=== PATIENT | male | born 1945 | race Caucasian/White ===

== ENCOUNTER 2018-10-01 10:09 | Day surgery (SDC) | payer MEDICARE ==
[2018-10-01] MEDS ORDERED: LIDOCAINE 2% MDV (20MG/ML) 20ML VIAL IV ONE (10:10)
[2018-10-01] MEDS ORDERED: PROPOFOL 10 MG/ML VIAL IV ONE (10:10)
--- NOTE | 2018-10-02 10:30 | Operative Note ---
DATE OF SURGERY: October 01, 2018 OPERATION: 1. ESOPHAGOGASTRODUODENOSCOPY with biopsy. 2. COLONOSCOPY. PREOPERATIVE DIAGNOSES: 1. Atypical dysphagia. 2. Colon cancer surveillance for personal history of polyps and a family history of polyps. POSTOPERATIVE DIAGNOSES: 1. Multiple gastric polyps. 2. Sigmoid diverticulosis. 3. Internal hemorrhoids. PROCEDURE: After informed consent was obtained from the patient, he was placed in the left lateral decubitus position in the endoscopy suite, sedated and monitored by the department of anesthesia. Once sedated, a well-lubricated [id number] gastroscope was placed in the posterior oropharynx and under direct visualization passed to the proximal esophagus. The endoscope was advanced through the proximal, mid, and distal esophagus. The esophagus and Ge junction were free of ulcers, erosions, inflammatory changes, strictures, or varices. The GE junction was unremarkable. The gastric body demonstrated normal distensibility, normal rugal folds. There were multiple gastric polyps in the proximal body/fundus. The remainder of the body, antrum, pylorus, duodenal bulb and sweep were unremarkable. J-turn views of the proximal stomach again revealed multiple polyps of small to medium size. They appeared semi-pedunculated. Multiple polyps were biopsied for sampling purposes. The endoscope was then straightened and retracted through the course of the proximal stomach and esophagus with no new findings or abnormalities identified. Digital rectal exam was unremarkable. A well-lubricated [id number] colonoscope was inserted into the rectum and advanced to the cecum. Preparation quality was good to excellent. The cecum, cecal bulb, ascending colon, transverse colon, and descending colon were unremarkable. The sigmoid colon demonstrated mild diverticular change but no other abnormalities. The rectum was unremarkable in forward views but J-turn views did reveal some mildly to moderately enlarged internal hemorrhoids. The endoscope was straightened, the rectal ampulla deflated, and the endoscope was removed. RECOMMENDATIONS: I would suggest the patient resume his medications and follow a high-fiber diet. I would recommend a repeat colonoscopy in 5 years based on his personal and family history. As for his dysphagia complaints, they seem to be rather mild and atypical. I would monitor the situation. Should his symptoms recur or worsen, I would suggest a video swallowing examination. As always, thank you for allowing me to participate in the healthcare of your patients. CC: MD SARINA Lomeli
== END 2018-10-01 12:04 | disposition home or self-care (01) ==
LOC: HOP 10:09
PROVIDERS: ATTEND Internal Medicine Gastroenterology
DX: Z12.11 Encounter for screening for malignant neoplasm of colon (principal); Z86.010 Personal history of colon polyps; Z83.71 Family history of colonic polyps; K57.30 Diverticulosis of large intestine without perforation or abscess without bleeding; K64.8 Other hemorrhoids; R13.19 Other dysphagia; K31.7 Polyp of stomach and duodenum; I10 Essential (primary) hypertension; I48.91 Unspecified atrial fibrillation; E78.00 Pure hypercholesterolemia, unspecified

== ENCOUNTER 2018-12-13 14:24 | Emergency (ER) | payer MEDICARE ==
[2018-12-13 15:07] LABS: BASO % 0.4 % (0-6); EOS % 2.7 % (0-6); GRAN % 54.7 % (47-80); HEMATOCRIT 41.2 % (42.0-52.0); HEMOGLOBIN 14.4 gm/dl (14.0-18.0); LYMPH % 30.7 % (16-45); MEAN CELL VOLUME 96.5 fl (81-97); MEAN CORPUSCULAR HEMOGLOBIN 33.7 pg (27-33); MONO % 11.5 % (0-9); PLATELET COUNT 226 K/uL (130-400); RED BLOOD COUNT 4.27 M/uL (4.40-5.70); RED CELL DISTRIBUTION WIDTH 13.2 % (11.5-14.5); WHITE BLOOD COUNT W/O DIFF 4.8 K/uL (4.2-12.2)
[2018-12-13 15:16] LABS: BLOOD UREA NITROGEN 20 mg/dL (8-23); CREATININE 1.1 mg/dL (0.7-1.2); EST GLOMERULAR FILTRATION RATE > 60 mL/min
[2018-12-13 15:19] LABS: GLUCOSE,RANDOM 140 mg/dL (74-109)
[2018-12-13 15:20] LABS: INR 1.2; PARTIAL THROMBOPLASTIN TIME 29.1 SECONDS (24.5-39.1); PROTHROMBIN TIME (PATIENT) 11.9 SECONDS (9.5-12.1)
[2018-12-13 15:22] LABS: DIGOXIN 0.4 ng/mL (0.8-2.0)
--- NOTE | 2018-12-13 15:33 | Emergency Department Record ---
History of Present Illness - General Chief complaint: GI Bleed Stated complaint: RUNNY BLACK STOOL Time Seen by Provider: 12/13/18 15:26 Source: Patient, RN notes reviewed Mode of Arrival: Ambulatory - History of Present Illness Initial comments: patient has black stools 3-4 per day and today the stools turned brown and the stools have been loose to 30 days. Usually he has two BM's per day. Patient had a colonoscopy 3 months ago and neg. Patient does drink except for a beer every lunch Onset/Timin -: Days(s) Severity scale (1-10): 1 Consistency: Constant Treatments Prior to Arrival: None - Related Data Home Medications Medication Instructions Recorded Confirmed Last Taken Ca/D3/Mag Ox/Zinc/Banquet Server/Arvin/Bor 1 each PO DAILY 12/13/18 12/13/18 1 Day Ago [Calcium 600+D3 Plus Caplet] ~12/12/18 Cholecalciferol (Vitamin D3) 5,000 unit PO DAILY 12/13/18 12/13/18 1 Day Ago [Vitamin D3] ~12/12/18 Digoxin 125 mcg PO DAILY 12/13/18 12/13/18 1 Day Ago ~12/12/18 Fenofibrate Nanocrystallized 145 mg PO DAILY 12/13/18 12/13/18 1 Day Ago [Fenofibrate] ~12/12/18 Folic Acid 0.8 mg PO DAILY 12/13/18 12/13/18 1 Day Ago ~12/12/18 Glucosamine HCl 1,500 mg PO DAILY 12/13/18 12/13/18 1 Day Ago ~12/12/18 Metoprolol Succinate 50 mg PO DAILY 12/13/18 12/13/18 1 Day Ago ~12/12/18 Multivitamin [Multiple Vitamins] 1 each PO DAILY 12/13/18 12/13/18 1 Day Ago ~12/12/18 Omeprazole 20 mg PO DAILY 12/13/18 12/13/18 1 Day Ago ~12/12/18 Pravastatin Sodium [Pravachol] 10 mg PO DAILY 12/13/18 12/13/18 1 Day Ago ~12/12/18 Rivaroxaban [Xarelto] 20 mg PO DAILY 12/13/18 12/13/18 1 Day Ago ~12/12/18 Thiamine HCl [Vitamin B-1] 100 mg PO DAILY 12/13/18 12/13/18 1 Day Ago ~12/12/18 Verapamil HCl [Calan] 120 mg PO DAILY 12/13/18 12/13/18 1 Day Ago ~12/12/18 Allergies Allergy/AdvReac Type Severity Reaction Status Date / Time acetaminophen [From Tylenol] Allergy HYPERSENSIT Verified 12/13/18 14:41 IVITY Travel Screening - Travel/Exposure Within Last 30 Days Have you traveled within the last 30 days?: No - Travel/Exposure Within Last Year Have you traveled outside the [place] in the last year?: No - Additonal Travel Details Have you been exposed to anyone with a communicable illness?: No - Travel Symptoms Symptom Screening: None Review of Systems Reviewed: No additional complaints except as noted below Constitutional: Reports: As per HPI. Denies: Chills, Fever, Malaise, Night sweats, Weakness, Weight change Eyes: Reports: As per HPI. Denies: Eye discharge, Eye pain, Photophobia, Vision change ENT: Reports: As per HPI. Denies: Congestion, Dental pain, Ear pain, Epistaxis , Hearing loss, Throat pain Respiratory: Reports: As per HPI. Denies: Cough, Dyspnea, Hemoptysis, Stridor, Wheezes Cardiovascular: Reports: As per HPI. Denies: Arrhythmia, Chest pain, Dyspnea on exertion, Edema, Murmurs, Orthopnea, Palpitations, Paroxysmal nocturnal dyspnea, Rheumatic Fever, Syncope Endocrine: Reports: As per HPI. Denies: Fatigue, Heat or cold intolerance, Polydipsia, Polyuria Gastrointestinal: Reports: As per HPI. Denies: Abdominal pain, Constipation, Diarrhea, Hematemesis, Hematochezia, Melena, Nausea, Vomiting Genitourinary: Reports: As per HPI. Denies: Dysuria, Frequency, Hematuria, Incontinence, Retention, Testicular pain, Testicular mass, Urgency Musculoskeletal: Reports: As per HPI. Denies: Arthralgia, Back pain, Gout, Joint swelling, Myalgia, Neck pain Skin: Reports: As per HPI. Denies: Bruising, Change in color, Change in hair/ nails, Lesions, Pruritus, Rash Neurological: Reports: As per HPI. Denies: Abnormal gait, Confusion, Headache, Numbness, Paresthesias, Seizure, Tingling, Tremors, Vertigo, Weakness Psychiatric: Reports: As per HPI. Denies: Anxiety, Auditory hallucinations, Depression, Homicidal thoughts, Suicidal thoughts, Visual hallucinations Hematological/Lymphatic: Reports: As per HPI. Denies: Anemia, Blood Clots, Easy bleeding, Easy bruising, Swollen glands Past Medical History - SOCIAL HISTORY Smoking Status: Former smoker Alcohol Use: Rare Drug Use: None - RESPIRATORY Hx Respiratory Disorders: No - CARDIOVASCULAR Hx Cardio Disorders: Yes Hx Abnormal EKG: Yes Hx Hypertension: Yes Hx Irregular Heartbeat: Yes (Afib) Hx Pacemaker/Defib: Yes Comment:: high cholesterol - NEURO Hx Neuro Disorders: No - GI Hx GI Disorders: Yes Hx Abdominal Pain: Yes (last few days) Hx Reflux: Yes Hx of Polyps: Yes - Hx Genitourinary Disorders: Yes Hx Bladder Problem: Yes (up at night to urinate) - ENDOCRINE Hx Endocrine Disorders: No - MUSCULOSKELETAL Hx Musculoskeletal Disorders: Yes Hx Arthritis: Yes - PSYCH Hx Psych Problems: No - HEMATOLOGY/ONCOLOGY Hx Hematology/Oncology Disorders: No Family Medical History Any Significant Family History?: Yes Physical Exam - General General Appearance: Alert, Oriented x3, Cooperative, No acute distress - Head Head exam: Normal inspection - Eye Eye exam: Normal appearance, PERRL Pupils: Normal accommodation - ENT ENT exam: Normal exam, Mucous membranes moist, Normal external ear exam, Normal orophraynx, TM's normal bilaterally Ear exam: Normal external inspection. negative: External canal tenderness Nasal Exam: Normal inspection. negative: Discharge, Sinus tenderness Mouth exam: Normal external inspection, Tongue normal Teeth exam: Normal inspection. negative: Dental caries Throat exam: Normal inspection. negative: Tonsillar erythema, Tonsillar exudate - Neck Neck exam: Normal inspection, Full ROM. negative: Tenderness - Respiratory Respiratory exam: Normal lung sounds bilaterally. negative: Respiratory distress - Cardiovascular Cardiovascular Exam: Regular rate, Normal rhythm, Normal heart sounds - GI/Abdominal GI/Abdominal exam: Soft, Normal bowel sounds. negative: Tenderness - Rectal Rectal exam: Heme (-) stool (brown stool on examining glove) - exam: Deferred - Extremities Extremities exam: Normal inspection, Full ROM, Normal capillary refill. negative: Tenderness - Back Back exam: Reports: Normal inspection, Full ROM. Denies: Muscle spasm, Rash noted, Tenderness - Neurological Neurological exam: Alert, Normal gait, Oriented X3, Reflexes normal - Psychiatric Psychiatric exam: Normal affect, Normal mood - Skin Skin exam: Dry, Intact, Normal color, Warm Course Vital Signs 12/13/18 14:32 Temperature 98.2 F Pulse Rate 84 Respiratory 18 Rate Blood Pressure 151/101 Pulse Ox 98 Medical Decision Making - Lab Data Result diagrams: 12/13/18 14:55 12/13/18 14:55 Lab Results 12/13/18 12/13/18 12/13/18 Range/Units 14:55 14:55 14:55 WBC 4.8 (4.2-12.2) K/uL RBC 4.27 L (4.40-5.70) M/uL Hgb 14.4 (14.0-18.0) gm/dl Hct 41.2 L (42.0-52.0) % MCV 96.5 (81-97) fl MCH 33.7 H (27-33) pg MCHC 35.0 (32-36) g/dl RDW 13.2 (11.5-14.5) % Plt Count 226 (130-400) K/uL MPV 9.0 (7.4-10.4) fl Gran % 54.7 (47-80) % Lymphocytes % 30.7 (16-45) % Monocytes % 11.5 H (0-9) % Eosinophils % 2.7 (0-6) % Basophils % 0.4 (0-6) % PT 11.9 (9.5-12.1) SECONDS INR 1.2 APTT 29.1 (24.5-39.1) SECONDS Sodium 143 (136-145) mmol/L Potassium 4.0 (3.4-4.5) mmol/L Chloride 102 (98-107) mmol/L Carbon Dioxide 27.0 (22-29) mmol/L Anion Gap 14.0 (7-16) BUN 20 (8-23) mg/dL Creatinine 1.1 (0.7-1.2) mg/dL Estimated GFR > 60 mL/min Random Glucose 140 H (74-109) mg/dL Calcium 10.2 (8.8-10.2) mg/dL Digoxin 0.4 L (0.8-2.0) ng/mL Disposition Clinical Impression: Diarrhea Qualifiers: Diarrhea type: unspecified type Qualified Code(s): R19.7 - Diarrhea, unspecified Disposition: Home, Self-Care Condition: (1) Good Instructions: Gastroenteritis (ED) Forms: Patient Portal Access Time of Disposition: 15:41 Quality - Quality Measures Quality Measures: N/A - Blood Pressure Screening Does Patient Have Any of the Following: No Blood Pressure Classification: Hypertensive Reading Systolic Measurement: 151 Diastolic Measurement: 101 Screening for High Blood Pressure: < First Hypertensive BP, F/U Documented > [ [id number]] First Hypertensive Follow-up Interventions: Referral to alternative/primary care provider.
[2018-12-13 16:11] LABS: ALKALINE PHOSPHATASE 62 U/L (55-149); ALT/SGPT 27 U/L (<41); AST/SGOT 28 U/L (10.0-50.0); BILIRUBIN,DIRECT < 0.2 mg/dL (0-0.3); TOTAL PROTEIN 8.1 g/dL (6.6-8.7)
== END 2018-12-13 16:00 | disposition home or self-care (01) ==
LOC: ER 14:24
DX: R19.7 Diarrhea, unspecified (principal); I48.91 Unspecified atrial fibrillation; I10 Essential (primary) hypertension; Z87.891 Personal history of nicotine dependence
CPT/HCPCS: 80048; 80076; 80162; 82272; 85025; 85610; 85730; 99283